=== PATIENT | female | born 1980 | race African-American/Black ===

== ENCOUNTER 2018-10-24 20:29 | Emergency (ER) | payer BC, OTHER ==
[2018-10-24 20:50] VITALS: BP 136/79; PULSE 65; TEMP 98.2; BMI 27.3
--- NOTE | 2018-10-24 20:50 | PDOC ---
Rapid Medical Evaluation Medical Evaluation: 10/24/18 20:45 I have performed a brief in-person evaluation of this patient. The patient presents with a chief complaint of:left arm pain x 2 days " stress related" plus performing heavy lifting this past week Pertinent physical exam findings: pain to left upper arm/ neck , reproduced pain with pressure to left SCM/ I have ordered the following: nothing The patient will proceed to the ED for further evaluation. Discharge Disposition - Referrals Referrals: Horacio Guido MD [Primary Care Provider] - - Patient Instructions - Post Discharge Activity
--- NOTE | 2018-10-24 21:30 | PDOC ---
History of Present Illness - General Chief Complaint: Back Pain Stated Complaint: LEFT ARM PAIN Time Seen by Provider: 10/24/18 21:13 - History of Present Illness Initial Comments: 10/24/18 21:28 38-year-old female without comorbidities presents for evaluation of left-sided neck pain and arm numbness 3 days after a stressful work out last week. Past History - Past Medical History Allergies/Adverse Reactions: Allergies Allergy/AdvReac Type Severity Reaction Status Date / Time Penicillins Allergy Verified 10/24/18 20:50 Home Medications: Ambulatory Orders Cyclobenzaprine HCl [Flexeril 10 mg] 10 mg PO HS PRN #10 tablet 10/24/18 Methylprednisolone [Medrol Dose Santy] 4 mg PO ASDIR #21 tablet 10/24/18 COPD: No - Suicide/Smoking/Psychosocial Hx Smoking History: Never smoked Have you smoked in the past 12 months: No Information on smoking cessation initiated: No Hx Alcohol Use: No Drug/Substance Use Hx: No Review of Systems - Review of Systems Constitutional: No: Fever Musculoskeletal: Yes: Neck Pain Neurological: Yes: See HPI, Numbness, Paresthesia, Tingling *Physical Exam - Vital Signs Last Vital Signs Temp Pulse Resp BP Pulse Ox 98.2 F 65 16 136/79 100 10/24/18 20:48 10/24/18 20:48 10/24/18 20:48 10/24/18 20:48 10/24/18 20:48 - Physical Exam Comments: 10/24/18 21:29 Cervical spine skin color and temperature are normal range of motion is full. There is no midline tenderness mild left-sided paracervical and trapezial spasm and tenderness. No right-sided tenderness. 5 out of 5 strength in bilateral upper extremities without gross sensorimotor deficits negative Spurling maneuver on the right positive on the left she is neurovascularly intact. Moderate Sedation - Procedure Monitoring Vital Signs: Procedure Monitoring Vital Signs Temperature 98.2 F 10/24/18 20:48 Pulse Rate 65 10/24/18 20:48 Respiratory Rate 16 10/24/18 20:48 Blood Pressure 136/79 10/24/18 20:48 O2 Sat by Pulse Oximetry (%) 100 10/24/18 20:48 *DC/Admit/Observation/Transfer Diagnosis at time of Disposition: Cervical radicular pain - Discharge Dispostion Disposition: HOME Condition at time of disposition: Stable Decision to Admit order: No - Prescriptions Prescriptions: Cyclobenzaprine HCl [Flexeril 10 mg] 10 mg PO HS PRN #10 tablet PRN Reason: Muscle Spasms Methylprednisolone [Medrol Dose Santy] 4 mg PO ASDIR #21 tablet - Referrals Referrals: Horacio Guido MD [Primary Care Provider] - Sukhdev Bolton MD [Staff Physician] - - Patient Instructions Printed Discharge Instructions: DI for Cervical Radiculopathy Additional Instructions: Leese take the steroid pack as directed. The muscle relaxers one tablet before bed and will make you sleepy. He may discontinue the muscle relaxers she cannot tolerated and you are tied the next day. Follow-up with spine surgery in 2-3 days for further evaluation and treatment options. Return to the emergency room should symptoms worsen or go unresolved. Do not take any anti-inflammatory such as Advil Motrin Aleve or ibuprofen while on the steroid pack. If she needed additional medication you may try [id number] Tylenol as directed. - Post Discharge Activity
== END 2018-10-24 21:57 | disposition home or self-care (01) ==
LOC: JERFT 20:29
DX: M54.12 Radiculopathy, cervical region (principal); M62.838 Other muscle spasm
CPT/HCPCS: 99281-25